=== PATIENT | female | born 1985 | race Two or more races ===

== ENCOUNTER 2018-01-07 02:27 | Emergency (ER) | payer SELFPAY ==
[~2018-01-07] VITALS: Ht 167.6 cm; Wt 122.5 kg
[2018-01-07 03:13] VITALS: BP 177/90
[2018-01-07] MEDS ORDERED: cefTRIAXone 1GM/10ml IVPUSH 10 ML IV ONE (05:51)
== END 2018-01-07 07:10 | disposition left against medical advice (07) ==
LOC: ER 02:27
DX: R20.0 Anesthesia of skin (principal); Z53.21 Procedure and treatment not carried out due to patient leaving prior to being seen by health care provider
CPT/HCPCS: J0696